=== PATIENT | male | born 1960 | race Hispanic/Latino ===

== ENCOUNTER 2017-01-04 00:12 | Emergency (ER) | payer OTHER ==
[2017-01-04 00:16] VITALS: BP 144/78; PULSE 152; RESP 20; TEMP 98.1; O2SAT 94
--- NOTE | 2017-01-04 01:09 | C.PDOC ---
History Of Present Illness Patient presents c/o left foot pain that occurred an hour [employer]. Patient notes a large construction item fell onto his left foot. Patient states difficulty ambulating after which prompted his visit. Denies weakness, numbness, or any other complaints. Time Seen by Provider: 01/04/17 00:17 Chief Complaint (Nursing): Lower Extremity Problem/Injury History Per: Patient History/Exam Limitations: no limitations Onset/Duration Of Symptoms: Hrs (an hour) Current Symptoms Are (Timing): Still Present Severity: Mild Recent travel outside of the [place]: No Additional History Per: Patient Past Medical History Reviewed: Historical Data, Nursing Documentation, Vital Signs Vital Signs: Last Vital Signs Temp 98.1 F 01/04/17 00:13 Pulse 152 H 01/04/17 00:13 Resp 20 01/04/17 01:24 BP 144/78 01/04/17 00:13 Pulse Ox 94 L 01/04/17 04:03 - Medical History PMH: No Chronic Diseases Family History: States: No Known Family Hx - Social History Hx Alcohol Use: No Hx Substance Use: No - Immunization History Hx Tetanus Toxoid Vaccination: No Hx Influenza Vaccination: No Hx Pneumococcal Vaccination: No Review Of Systems Constitutional: Negative for: Fever, Weakness, Weight loss Musculoskeletal: Positive for: Foot Pain (left) Skin: Negative for: Rash, Lesions Neurological: Negative for: Weakness, Numbness Physical Exam - Physical Exam Appears: Non-toxic, No Acute Distress Skin: Warm, Dry, No Rash Head: Atraumatic, Normacephalic Eye(s): bilateral: Normal Inspection Oral Mucosa: Moist Extremity: Normal ROM, Tenderness (Dorsum of the left foot), Capillary Refill (< 2secs), Swelling (Dorsum of the left foot) Extremity: Bilateral: Normal Color And Temperature Pulses: Left Dorsalis Pedis: Normal, Right Dorsalis Pedis: Normal Neurological/Psych: Oriented x3, Normal Motor, Normal Sensation, Other (No focal deficit) Gait: Steady ED Course And Treatment O2 Sat by Pulse Oximetry: 94 (RA) Pulse Ox Interpretation: Normal Medical Decision Making Medical Decision Making: Impression: * Left foot pain that occurred an hour [employer]. Plans: * Tylenol * XRAY left foot Patient is in no acute distress at this time and is improving with the left foot pain. Patient is without weakness or numbness. Patient was advised to follow up with his PMD for further evaluation and to return if symptoms worsens. Disposition - Disposition Referrals: Nguyen Avila DPM [Staff Provider] - [facility] [Outside] Disposition: HOME/ ROUTINE Disposition Time: 01:07 Condition: GOOD Additional Instructions: Follow up with the Foot doctor within 1-2 days. Return if worsened. Prescriptions: Ibuprofen [Motrin Tab] 800 mg PO TID #20 tab Instructions: Foot Contusion (ED) Forms: [facility] (Estonian), Work Excuse - Clinical Impression Clinical Impression: Foot contusion - Scribe Statement The provider has reviewed the documentation as recorded by the Scribe Chula rangel All medical record entries made by the Scribe were at my direction and personally dictated by me. I have reviewed the chart and agree that the record accurately reflects my personal performance of the history, physical exam, medical decision making, and the department course for this patient. I have also personally directed, reviewed, and agree with the discharge instructions and disposition.
--- NOTE | 2017-01-04 08:20 | RAD ---
PROCEDURE: HISTORY: crush injury to the mid foot COMPARISON: None TECHNIQUE: Three views FINDINGS: No fracture or dislocation. Minimal 1st metatarsal head osseous hypertrophy/minimal arthrosis here IMPRESSION: No fracture
== END 2017-01-04 01:27 | disposition home or self-care (01) ==
LOC: C.ER 00:12
DX: S90.32XA Contusion of left foot, initial encounter (principal); W22.8XXA Striking against or struck by other objects, initial encounter; Y92.89 Other specified places as the place of occurrence of the external cause; Y99.0 Civilian activity done for income or pay